=== PATIENT | female | born 1975 | race Caucasian/White ===

== ENCOUNTER 2018-10-02 04:37 | Emergency (ER) | payer SELFPAY ==
[~2018-10-02] VITALS: Ht 165.1 cm; Wt 69.0 kg
[2018-10-02 04:41] VITALS: BP 141/90
== END 2018-10-02 10:48 | disposition left against medical advice (07) ==
LOC: ER 04:37
DX: Z53.21 Procedure and treatment not carried out due to patient leaving prior to being seen by health care provider (principal)